=== PATIENT | female | born 1935 | race Caucasian/White ===

== ENCOUNTER → 2016-10-20 | Outpatient (CLI) | payer OTHER ==
[~2016-10-20] MED LIST: ALLEGRA 180MG180 MG PO; ANTACID200 MG PO; ASPIRIN 32325 MG/TAB PO; ASPIRIN 81M81 MG/TA2 PO; CALCIUM 500500 M2 PO; CARDIZEM 90MG T90 MG PO; CEPHALEXIN500 M1 PO; CLARITIN 1010 MG/TAB PO; CLEOCIN HC150 MG/CAP PO; CORDARONE200 MG/TAB PO; COZAAR100 MG PO; CRANBERRY1 CAP PO; CRANBERRY1 POW PO; CRANBERRY500 M3 PO; CRESTOR5 MG PO; DIOVAN HCT 25 M1 TAB PO; DOXYCYCLINE HY100 MG PO; ELIQUIS 5MG PO; IRON325 M2 PO; KLOR-CON M2020 MEQ PO; LASIX 20MG TABL20 MG PO; LASIX 40MG TABL40 MG PO; MAGNESIUM100 MG PO; MAGNESIUM250 M1 PO; MASON NATURAL2000 IU PO; MOBIC15 MG PO; MOTRIN 600600 MG/TAB PO; MULTIVITAMIN FO1 CAP PO; PACERONE400 MG PO; PREDNISONE20 MG PO; PROBIOTIC FORMU1 CAP PO; TAZTIA180 PO; TOPROL XL 25MG25 MG PO; TOPROL XL 50MG50 MG PO; TOPROL XL100 MG PO; TUMS DUAL ACTIO1 CTB PO; TUMS EXTRA STR750 MG PO; TYLENOL 500MG500 MG PO; ULTRAM 50MG TAB50 MG PO; VIT D; VITAMIN D32000 I1 PO; WOMEN'S DAILY F1 TAB PO; ZAROXOLYN 2.52.5 MG PO
== END ==
LOC: WCC 09:00
DX: I87.8 Other specified disorders of veins (principal); R20.0 Anesthesia of skin
CPT/HCPCS: G0463

== ENCOUNTER 2016-12-03 08:02 | Outpatient (CLI) | payer MEDICARE, OTHER ==
[2016-12-03] VITALS (8 sets, daily range): BP systolic 137–154; BP diastolic 45–73; PULSE 57–63; TEMP 97.6
[~2016-12-03] VITALS: Ht 155 cm; Wt 80.9 kg
[~2016-12-03 08:02] MED LIST changes: -ANTACID200 MG PO; -ASPIRIN 32325 MG/TAB PO; -ASPIRIN 81M81 MG/TA2 PO; -CARDIZEM 90MG T90 MG PO; -CEPHALEXIN500 M1 PO; -CLARITIN 1010 MG/TAB PO; -CORDARONE200 MG/TAB PO; -DOXYCYCLINE HY100 MG PO; -IRON325 M2 PO; -MASON NATURAL2000 IU PO; -PROBIOTIC FORMU1 CAP PO; -TOPROL XL 50MG50 MG PO; -TOPROL XL100 MG PO; -TUMS DUAL ACTIO1 CTB PO; -ULTRAM 50MG TAB50 MG PO; -ZAROXOLYN 2.52.5 MG PO
[2016-12-03 09:00] LABS: INR 1.1 (0.8-3.0); PROTHROMBIN TIME 12.3 SECONDS (9.7-12.8)
[2016-12-03] MEDS ORDERED: ANTACID200 MG PO (09:00)
[2016-12-03] MEDS ORDERED: ASPIRIN 81M81 MG/TA2 PO (09:02)
[2016-12-03] MEDS ORDERED: CLARITIN 1010 MG/TAB PO (09:04)
[2016-12-03] MEDS ORDERED: ULTRAM 50MG TAB50 MG PO (09:05)
[2016-12-03 09:08] LABS: MEAN CELL VOLUME 77 fl (80.0-100.0); MEAN CORPUSCULAR HGB CONC 30 g/dl (33.0-37.0); MEAN PLATELET VOLUME 8.7 fl (7.4-10.4); PLATELET COUNT 221 K/mm3 (130-400); RED BLOOD COUNT 4.54 M/mm3 (4.10-5.30); REDCELL DISTRIBUTION WIDTH-CV 16.4 % (11.5-14.5); WHITE BLOOD COUNT 6.2 K/mm3 (4.8-10.8)
[2016-12-03 09:18] LABS: HEMOGLOBIN 10.4 g/dl (12.5-16.0); MEAN CORPUSCULAR HEMOGLOBIN 23 pg (27.0-31.0)
== END 2016-12-03 15:33 | disposition home or self-care (01) ==
LOC: COL.VAS 08:02
PROVIDERS: Radiology Diagnostic Radiology
DX: I87.321 Chronic venous hypertension (idiopathic) with inflammation of right lower extremity (principal); M79.89 Other specified soft tissue disorders; M79.605 Pain in left leg
CPT/HCPCS: C1894; J2250; J3010; J3370; J7040; J7050; J7120

== ENCOUNTER → 2016-12-10 | Outpatient (CLI) | payer MEDICARE, OTHER ==
[~2016-12-10] MED LIST changes: +ANTACID200 MG PO; +ASPIRIN 32325 MG/TAB PO; +ASPIRIN 81M81 MG/TA2 PO; +CARDIZEM 90MG T90 MG PO; +CEPHALEXIN500 M1 PO; +CLARITIN 1010 MG/TAB PO; +CORDARONE200 MG/TAB PO; +DOXYCYCLINE HY100 MG PO; +IRON325 M2 PO; +MASON NATURAL2000 IU PO; +PROBIOTIC FORMU1 CAP PO; +TOPROL XL 50MG50 MG PO; +TOPROL XL100 MG PO; +TUMS DUAL ACTIO1 CTB PO; +ULTRAM 50MG TAB50 MG PO; +ZAROXOLYN 2.52.5 MG PO
== END ==
LOC: COL.VAS 10:56
DX: Z09 Encounter for follow-up examination after completed treatment for conditions other than malignant neoplasm (principal); I87.2 Venous insufficiency (chronic) (peripheral)

== ENCOUNTER 2017-01-07 08:00 | Outpatient (CLI) | payer MEDICARE, OTHER ==
[~2017-01-07] VITALS: Ht 154.9 cm; Wt 81.3 kg
[2017-01-07] VITALS (8 sets, daily range): BP systolic 111–150; BP diastolic 45–83; PULSE 61–66; TEMP 96.9
[~2017-01-07 08:00] MED LIST changes: -ASPIRIN 32325 MG/TAB PO; -CARDIZEM 90MG T90 MG PO; -CEPHALEXIN500 M1 PO; -CORDARONE200 MG/TAB PO; -DOXYCYCLINE HY100 MG PO; -IRON325 M2 PO; -MASON NATURAL2000 IU PO; -PROBIOTIC FORMU1 CAP PO; -TOPROL XL 50MG50 MG PO; -TOPROL XL100 MG PO; -TUMS DUAL ACTIO1 CTB PO; -ZAROXOLYN 2.52.5 MG PO
[2017-01-07] MEDS ORDERED: TOPROL XL 50MG50 MG PO (08:13)
[2017-01-07] MEDS ORDERED: CORDARONE200 MG/TAB PO (08:13)
[2017-01-07] MEDS ORDERED: TYLENOL 500MG500 MG PO (08:15)
== END 2017-01-07 14:47 | disposition home or self-care (01) ==
LOC: COL.VAS 08:00
DX: I87.2 Venous insufficiency (chronic) (peripheral) (principal); M79.89 Other specified soft tissue disorders
CPT/HCPCS: C1894; J2250; J3010; J3370; J7050; J7120

== ENCOUNTER → 2017-01-14 | Outpatient (CLI) | payer MEDICARE, OTHER ==
[~2017-01-14] MED LIST changes: +ASPIRIN 32325 MG/TAB PO; +CARDIZEM 90MG T90 MG PO; +CEPHALEXIN500 M1 PO; +CORDARONE200 MG/TAB PO; +DOXYCYCLINE HY100 MG PO; +IRON325 M2 PO; +MASON NATURAL2000 IU PO; +PROBIOTIC FORMU1 CAP PO; +TOPROL XL 50MG50 MG PO; +TOPROL XL100 MG PO; +TUMS DUAL ACTIO1 CTB PO; +ZAROXOLYN 2.52.5 MG PO
== END ==
LOC: COL.VAS 01-13 10:00
DX: Z09 Encounter for follow-up examination after completed treatment for conditions other than malignant neoplasm (principal); Z86.718 Personal history of other venous thrombosis and embolism

== ENCOUNTER 2017-04-18 19:52 | Observation (INO) | payer MEDICARE ==
[~2017-04-18] VITALS: Ht 154.9 cm; Wt 77.7 kg
[~2017-04-18 19:52] MED LIST changes: -ASPIRIN 32325 MG/TAB PO; -CARDIZEM 90MG T90 MG PO; -CEPHALEXIN500 M1 PO; -DOXYCYCLINE HY100 MG PO; -IRON325 M2 PO; -MASON NATURAL2000 IU PO; -PROBIOTIC FORMU1 CAP PO; -TOPROL XL100 MG PO; -TUMS DUAL ACTIO1 CTB PO; -ZAROXOLYN 2.52.5 MG PO
[2017-04-18 20:16] LABS: BASO % 0.3 % (0.0-2.0); EOS % 0.3 % (0-4.0); GRAN # 3.8 (1.4-6.5); GRAN % 62.5 % (42.2-75.2); LYMPH % 16.8 % (20.0-51.0); MEAN CELL VOLUME 77 fl (80.0-100.0); MEAN CORPUSCULAR HGB CONC 30 g/dl (33.0-37.0); MEAN PLATELET VOLUME 8.8 fl (7.4-10.4); MONO # 1.2 (0.1-0.6); MONO % 19.8 % (1.7-9.3); PLATELET COUNT 263 K/mm3 (130-400); RED BLOOD COUNT 4.42 M/mm3 (4.10-5.30); REDCELL DISTRIBUTION WIDTH-CV 21.2 % (11.5-14.5)
[2017-04-18 20:21] LABS: HEMOGLOBIN 10.1 g/dl (12.5-16.0); MEAN CORPUSCULAR HEMOGLOBIN 23 pg (27.0-31.0)
[2017-04-18] MEDS ORDERED: TOPROL XL100 MG PO (20:22)
[2017-04-18] MEDS ORDERED: LASIX 40MG TABL40 MG PO (20:23)
[2017-04-18] MEDS ORDERED: CARDIZEM 90MG T90 MG PO (20:23)
[2017-04-18] MEDS ORDERED: ASPIRIN 32325 MG/TAB PO (20:24)
[2017-04-18] MEDS ORDERED: CRANBERRY500 M3 PO (20:24)
[2017-04-18] MEDS ORDERED: MAGNESIUM250 M1 PO (20:24)
[2017-04-18] MEDS ORDERED: KLOR-CON M2020 MEQ PO (20:24)
[2017-04-18] MEDS ORDERED: TUMS DUAL ACTIO1 CTB PO (20:25)
[2017-04-18] MEDS ORDERED: MASON NATURAL2000 IU PO (20:25)
[2017-04-18] MEDS ORDERED: DOXYCYCLINE HY100 MG PO (20:26)
[2017-04-18] MEDS ORDERED: ULTRAM 50MG TAB50 MG PO ×2 (20:27→21:57)
[2017-04-18] MEDS ORDERED: ZAROXOLYN 2.52.5 MG PO (20:28)
[2017-04-18] MEDS ORDERED: PROBIOTIC FORMU1 CAP PO (20:28)
[2017-04-18 20:33] LABS: ADJUSTED CALCIUM 9.3 mg/dL (8.4-10.2); ALANINE AMINOTRANSFERASE 116 U/L (9-52); ALBUMIN 3.8 gm/dL (3.5-5.0); ALKALINE PHOSPHATASE 174 U/L (50-136); ANION GAP 12 mmol/L (7-16); BILIRUBIN,TOTAL 0.5 mg/dL (0.0-1.0); BLOOD UREA NITROGEN 84 mg/dL (7-17); CALCIUM 9.1 mg/dL (8.4-10.2); CARBON DIOXIDE 22 mmol/L (22-30); CHLORIDE 93 mmol/L (98-107); CREATININE, serum 1.94 mg/dL (0.52-1.25); GLUCOSE 106 mg/dL (74-106); POTASSIUM 3.6 mmol/L (3.4-5.0); SODIUM 127 mmol/L (137-145); TOTAL PROTEIN 7.2 gm/dL (6.4-8.2)
[2017-04-18 20:46] LABS: TROPONIN-I < 0.012 ng/mL (0.000-0.034)
[2017-04-18 20:53] LABS: PH 5 (5-8); SQUAMOUS EPITHELIAL None Seen /hpf; URINE APPEARANCE Clear; URINE BACTERIA None Seen /hpf; URINE BILIRUBIN Negative (NEGATIVE); URINE BLOOD Negative (NEGATIVE); URINE COLOR Yellow; URINE GLUCOSE Negative (NEGATIVE); URINE KETONE Negative (NEGATIVE); URINE UROBILINOGEN Negative (NEGATIVE)
[2017-04-18] MEDS ORDERED: ASPIRIN 81M81 MG/TA2 PO (21:54)
[2017-04-18] MEDS ORDERED: LASIX 20MG TABL20 MG PO (22:01)
[2017-04-18] MEDS ORDERED: PACERONE400 MG PO (22:03)
[2017-04-18 22:39] VITALS: BP 135/60; PULSE 61; TEMP 97.5
[2017-04-18 23:34] LABS: B-TYPE NATRIURETIC PEPTIDE 2580 pg/mL (0-450)
[2017-04-19 03:57] VITALS: BP 120/48; PULSE 56; TEMP 97.4
[2017-04-19 07:48] VITALS: BP 121/43; PULSE 59; TEMP 97.8
[2017-04-19 08:57] LABS: BASO % 0.4 % (0.0-2.0); EOS % 0.9 % (0-4.0); GRAN % 63.9 % (42.2-75.2); LYMPH # 0.8 (1.2-3.4); LYMPH % 17.1 % (20.0-51.0); MEAN CELL VOLUME 78 fl (80.0-100.0); MEAN CORPUSCULAR HGB CONC 30 g/dl (33.0-37.0); MEAN PLATELET VOLUME 9.3 fl (7.4-10.4); MONO # 0.8 (0.1-0.6); MONO % 17.5 % (1.7-9.3); PLATELET COUNT 199 K/mm3 (130-400); RED BLOOD COUNT 3.74 M/mm3 (4.10-5.30); REDCELL DISTRIBUTION WIDTH-CV 20.9 % (11.5-14.5); WHITE BLOOD COUNT 4.7 K/mm3 (4.8-10.8)
[2017-04-19 09:01] LABS: HEMATOCRIT 29.3 % (37.0-47.0); HEMOGLOBIN 8.7 g/dl (12.5-16.0); MEAN CORPUSCULAR HEMOGLOBIN 23 pg (27.0-31.0)
[2017-04-19 09:08] LABS: ADJUSTED CALCIUM 9.1 mg/dL (8.4-10.2); BILIRUBIN,TOTAL 0.3 mg/dL (0.0-1.0); CALCIUM 8.3 mg/dL (8.4-10.2); CREATININE, serum 1.41 mg/dL (0.52-1.25); TOTAL PROTEIN 5.9 gm/dL (6.4-8.2)
[2017-04-19 09:14] LABS: POTASSIUM 2.8 mmol/L (3.4-5.0)
[2017-04-19 09:34] LABS: TOTAL IRON BINDING CAPACITY 385 ug/dL (265-497)
[2017-04-19 10:01] LABS: FERRITIN 34 ng/mL (11-264)
[2017-04-19 12:16] VITALS: BP 113/61; PULSE 56; TEMP 98.5
[2017-04-19 15:49] VITALS: BP 121/37; PULSE 57
[2017-04-19 20:16] VITALS: BP 118/40; PULSE 57; TEMP 97.9
[2017-04-20 04:31] VITALS: BP 141/44; PULSE 58; TEMP 98.2
[2017-04-20 07:59] VITALS: BP 126/49; PULSE 56; TEMP 98
[2017-04-20 08:36] LABS: BASO % 0.7 % (0.0-2.0); EOS # 0.1 (0.0-0.7); EOS % 1.8 % (0-4.0); GRAN # 2.4 (1.4-6.5); GRAN % 53.7 % (42.2-75.2); LYMPH # 1.1 (1.2-3.4); LYMPH % 23.6 % (20.0-51.0); MEAN CELL VOLUME 79 fl (80.0-100.0); MEAN CORPUSCULAR HGB CONC 29 g/dl (33.0-37.0); MEAN PLATELET VOLUME 8.8 fl (7.4-10.4); MONO # 0.9 (0.1-0.6); PLATELET COUNT 192 K/mm3 (130-400); RED BLOOD COUNT 3.97 M/mm3 (4.10-5.30); REDCELL DISTRIBUTION WIDTH-CV 21.6 % (11.5-14.5); WHITE BLOOD COUNT 4.5 K/mm3 (4.8-10.8)
[2017-04-20 08:37] LABS: HEMATOCRIT 31.2 % (37.0-47.0); HEMOGLOBIN 9.1 g/dl (12.5-16.0); MEAN CORPUSCULAR HEMOGLOBIN 23 pg (27.0-31.0)
[2017-04-20 08:46] LABS: CALCIUM 8.7 mg/dL (8.4-10.2); CREATININE, serum 1.17 mg/dL (0.52-1.25); MAGNESIUM 2.2 mg/dL (1.6-2.3); POTASSIUM 4.2 mmol/L (3.4-5.0)
[2017-04-20 11:57] VITALS: BP 143/45; PULSE 57; TEMP 97.8
[2017-04-20] MEDS ORDERED: CEPHALEXIN500 M1 PO (13:27)
[2017-04-20 15:34] VITALS: BP 131/45; PULSE 57; TEMP 98
[2017-04-20] MEDS ORDERED: IRON325 M2 PO (16:21)
== END 2017-04-20 17:44 | disposition home health service (06) ==
LOC: COL.ER 19:52 → MEDICAL 21:26
PROVIDERS: Emergency Medicine; Nurse Practitioner Family; Physician Assistant
DX: N17.9 Acute kidney failure, unspecified (principal); N18.9 Chronic kidney disease, unspecified; N39.0 Urinary tract infection, site not specified; E87.1 Hypo-osmolality and hyponatremia; R53.83 Other fatigue; R60.9 Edema, unspecified; I87.8 Other specified disorders of veins; R11.0 Nausea; R19.7 Diarrhea, unspecified; D64.9 Anemia, unspecified; R74.8 Abnormal levels of other serum enzymes; R51 Headache; R53.1 Weakness; R53.81 Other malaise; I48.91 Unspecified atrial fibrillation; Z79.01 Long term (current) use of anticoagulants; I08.1 Rheumatic disorders of both mitral and tricuspid valves; M17.0 Bilateral primary osteoarthritis of knee
CPT/HCPCS: 99223-AI; 99239; G0378; G8978-GP; G8979-GP; G8987-GO; G8988-GO; J0696; J1644; J3480; J7030

== ENCOUNTER → 2017-05-03 | Outpatient (CLI) | payer MEDICARE, OTHER ==
[~2017-05-03] MED LIST changes: +ASPIRIN 32325 MG/TAB PO; +CARDIZEM 90MG T90 MG PO; +CEPHALEXIN500 M1 PO; +DOXYCYCLINE HY100 MG PO; +IRON325 M2 PO; +MASON NATURAL2000 IU PO; +PROBIOTIC FORMU1 CAP PO; +TOPROL XL100 MG PO; +TUMS DUAL ACTIO1 CTB PO; +ZAROXOLYN 2.52.5 MG PO
== END ==
LOC: WCC 11:21
DX: I89.0 Lymphedema, not elsewhere classified (principal)
CPT/HCPCS: 13919; G0463

== ENCOUNTER → 2017-05-10 | Outpatient (CLI) | payer MEDICARE, OTHER | LOC: WCC 09:27 | DX: I89.0 Lymphedema, not elsewhere classified (principal) | CPT/HCPCS: G0463 ==

== ENCOUNTER 2017-08-15 03:20 | Inpatient (IN) | payer MEDICARE, OTHER ==
[~2017-08-15] VITALS: Ht 154.9 cm; Wt 79.0 kg
[2017-08-15] MEDS ORDERED: LASIX 40MG TABL40 MG PO (03:41)
[2017-08-15] MEDS ORDERED: DOXYCYCLINE HY100 MG PO (03:41)
[2017-08-15 03:53] LABS: BASO % 0.5 % (0.0-2.0); EOS # 0.1 (0.0-0.7); EOS % 1.6 % (0-4.0); GRAN # 3.1 (1.4-6.5); GRAN % 70.6 % (42.2-75.2); LYMPH # 0.6 (1.2-3.4); LYMPH % 14.3 % (20.0-51.0); MEAN CELL VOLUME 96 fl (80.0-100.0); MEAN CORPUSCULAR HGB CONC 30 g/dl (33.0-37.0); MEAN PLATELET VOLUME 8.8 fl (7.4-10.4); MONO # 0.6 (0.1-0.6); MONO % 12.5 % (1.7-9.3); PLATELET COUNT 129 K/mm3 (130-400); RED BLOOD COUNT 3.52 M/mm3 (4.10-5.30); WHITE BLOOD COUNT 4.4 K/mm3 (4.8-10.8)
[2017-08-15 03:55] LABS: HEMATOCRIT 33.7 % (37.0-47.0); HEMOGLOBIN 10.2 g/dl (12.5-16.0); MEAN CORPUSCULAR HEMOGLOBIN 29 pg (27.0-31.0)
[2017-08-15 03:58] LABS: INR 1.2 (0.8-3.0); PROTHROMBIN TIME 12.9 SECONDS (9.7-12.8)
[2017-08-15] MEDS ORDERED: FERROUSAL325 MG PO (04:07)
[2017-08-15 04:11] LABS: ADJUSTED CALCIUM 9.7 mg/dL (8.4-10.2); ALANINE AMINOTRANSFERASE 22 U/L (9-52); ALBUMIN 3.5 gm/dL (3.5-5.0); ALKALINE PHOSPHATASE 115 U/L (50-136); ANION GAP 9 mmol/L (7-16); BLOOD UREA NITROGEN 19 mg/dL (7-17); CALCIUM 9.3 mg/dL (8.4-10.2); CARBON DIOXIDE 26 mmol/L (22-30); CHLORIDE 110 mmol/L (98-107); CREATININE, serum 1.01 mg/dL (0.52-1.25); GLUCOSE 150 mg/dL (74-106); POTASSIUM 3.8 mmol/L (3.4-5.0); SODIUM 145 mmol/L (137-145); TOTAL PROTEIN 6.5 gm/dL (6.4-8.2)
[2017-08-15 04:23] LABS: B-TYPE NATRIURETIC PEPTIDE 12500 pg/mL (0-450); TROPONIN-I < 0.012 ng/mL (0.000-0.034)
[2017-08-15 04:23] LABS: COLLECTION METHOD CLEAN CATCH
[2017-08-15 04:42] LABS: PH 6 (5-8); SQUAMOUS EPITHELIAL None Seen /hpf; URINE APPEARANCE Clear; URINE BACTERIA None Seen /hpf; URINE BILIRUBIN Negative (NEGATIVE); URINE BLOOD 2+ (NEGATIVE); URINE COLOR Yellow; URINE GLUCOSE Negative (NEGATIVE); URINE KETONE Negative (NEGATIVE); URINE LEUKOCYTE ESTERASE 1+ (NEGATIVE); URINE PROTEIN(semi-quant) 2+ (NEGATIVE); URINE RBC 20-50 /hpf; URINE UROBILINOGEN Negative (NEGATIVE)
[2017-08-15 04:45] LABS: URINE WBC >50 /hpf
[2017-08-15 05:29] LABS: ALLEN TEST YES; ALLENS TEST RESULT PASS; ARTERIAL BLD GAS O2 SATURATION 92.9 % (92-100); ARTERIAL BLD GAS TCO2 CT 21.7; ARTERIAL BLOOD GAS BASE EXCESS -4.2 (-2-2); ARTERIAL BLOOD GAS HCO3 20.5 meq/L (22-26); ARTERIAL BLOOD GAS PO2 74.3 mmHg (80-100); ARTERIAL BLOOD GAS pH 7.37 (7.35-7.45); ATS? YES; OXYHEMOGLOBIN 92.2 %
[2017-08-15 07:19] VITALS: BP 111/41; PULSE 81; TEMP 97.4
[2017-08-15 09:08] LABS: ARTERIAL BLD GAS O2 SATURATION 97.7 % (92-100); ARTERIAL BLD GAS TCO2 CT 28.2; ARTERIAL BLOOD GAS HCO3 26.7 meq/L (22-26); ARTERIAL BLOOD GAS PO2 116.5 mmHg (80-100); ARTERIAL BLOOD GAS pH 7.37 (7.35-7.45); OXYHEMOGLOBIN 96.5 %
[2017-08-15 09:09] LABS: ALLEN TEST YES; ALLENS TEST RESULT PASS; ATS? YES
[2017-08-15 10:15] LABS: POTASSIUM 3.4 mmol/L (3.4-5.0)
[2017-08-15 11:23] VITALS: BP 137/40; PULSE 65; TEMP 98.7
[2017-08-15 12:34] LABS: ARTERIAL BLD GAS O2 SATURATION 97.1 % (92-100); ARTERIAL BLOOD GAS BASE EXCESS 1.8 (-2-2); ARTERIAL BLOOD GAS HCO3 26.7 meq/L (22-26); ARTERIAL BLOOD GAS PO2 104.2 mmHg (80-100); ARTERIAL BLOOD GAS pH 7.41 (7.35-7.45); OXYHEMOGLOBIN 96.1 %
[2017-08-15 12:35] LABS: ALLEN TEST YES; ALLENS TEST RESULT PASS; ATS? YES
[2017-08-15 12:36] LABS: ABG VENTILATOR TIDAL VOLUME 438 mL
[2017-08-15 13:50] LABS: THYROID STIMULATING HORMONE 1.09 uIU/mL (0.465-4.680)
[2017-08-15 16:00] VITALS: BP 133/37; PULSE 58; TEMP 98.8
[2017-08-15 20:00] VITALS: BP 131/38; PULSE 56; TEMP 98.7
[2017-08-16 05:06] LABS: ARTERIAL BLD GAS O2 SATURATION 93.6 % (92-100); ARTERIAL BLD GAS TCO2 CT 29.5; ARTERIAL BLOOD GAS BASE EXCESS 3.6 (-2-2); ARTERIAL BLOOD GAS HCO3 28.2 meq/L (22-26); ARTERIAL BLOOD GAS PHT 7.44 C (7.35-7.45); ARTERIAL BLOOD GAS PO2 68.6 mmHg (80-100); ARTERIAL BLOOD GAS PO2T 68.6 (80-100); ARTERIAL BLOOD GAS pH 7.44 (7.35-7.45); OXYHEMOGLOBIN 92.8 %
[2017-08-16 05:09] LABS: ALLEN TEST YES; ALLENS TEST RESULT PASS; ATS? YES
[2017-08-16 06:52] LABS: BASO % 0.6 % (0.0-2.0); EOS # 0.1 (0.0-0.7); EOS % 1.7 % (0-4.0); GRAN # 2.4 (1.4-6.5); GRAN % 67.6 % (42.2-75.2); LYMPH # 0.6 (1.2-3.4); LYMPH % 16.7 % (20.0-51.0); MEAN CELL VOLUME 97 fl (80.0-100.0); MEAN CORPUSCULAR HGB CONC 30 g/dl (33.0-37.0); MEAN PLATELET VOLUME 9.7 fl (7.4-10.4); MONO # 0.5 (0.1-0.6); MONO % 13.1 % (1.7-9.3); PLATELET COUNT 119 K/mm3 (130-400); RED BLOOD COUNT 3.19 M/mm3 (4.10-5.30); WHITE BLOOD COUNT 3.6 K/mm3 (4.8-10.8)
[2017-08-16 06:58] LABS: HEMATOCRIT 30.8 % (37.0-47.0); HEMOGLOBIN 9.3 g/dl (12.5-16.0); MEAN CORPUSCULAR HEMOGLOBIN 29 pg (27.0-31.0)
[2017-08-16 07:07] LABS: CALCIUM 9.1 mg/dL (8.4-10.2); CREATININE, serum 1.16 mg/dL (0.52-1.25); MAGNESIUM 1.9 mg/dL (1.6-2.3); POTASSIUM 3.6 mmol/L (3.4-5.0)
[2017-08-16 09:05] VITALS: BP 148/47; PULSE 70; TEMP 98.4
[2017-08-16 12:30] VITALS: BP 146/71; PULSE 66; TEMP 98.1
[2017-08-16 15:47] VITALS: BP 141/44; PULSE 62; TEMP 97.5
[2017-08-16 20:00] VITALS: BP 167/60; PULSE 56; TEMP 97.6
[2017-08-17] VITALS (7 sets, daily range): BP systolic 132–173; BP diastolic 43–66; PULSE 54–59; TEMP 96.7–97.9
[2017-08-17 07:15] LABS: BASO % 0.6 % (0.0-2.0); EOS # 0.2 (0.0-0.7); EOS % 4.4 % (0-4.0); GRAN # 2.1 (1.4-6.5); GRAN % 61.3 % (42.2-75.2); LYMPH # 0.7 (1.2-3.4); LYMPH % 19.2 % (20.0-51.0); MEAN CELL VOLUME 97 fl (80.0-100.0); MEAN CORPUSCULAR HGB CONC 30 g/dl (33.0-37.0); MEAN PLATELET VOLUME 9.6 fl (7.4-10.4); MONO # 0.5 (0.1-0.6); MONO % 14.2 % (1.7-9.3); PLATELET COUNT 122 K/mm3 (130-400); WHITE BLOOD COUNT 3.4 K/mm3 (4.8-10.8)
[2017-08-17 07:16] LABS: HEMOGLOBIN 10.2 g/dl (12.5-16.0); MEAN CORPUSCULAR HEMOGLOBIN 29 pg (27.0-31.0)
[2017-08-17 07:26] LABS: CALCIUM 9.1 mg/dL (8.4-10.2); CREATININE, serum 1.17 mg/dL (0.52-1.25); MAGNESIUM 2.1 mg/dL (1.6-2.3); POTASSIUM 3.6 mmol/L (3.4-5.0)
[2017-08-18] VITALS (16 sets, daily range): BP systolic 121–163; BP diastolic 39–97; PULSE 55–60; TEMP 97.4–98.7
[2017-08-18 07:07] LABS: BASO % 0.6 % (0.0-2.0); EOS # 0.1 (0.0-0.7); EOS % 3.7 % (0-4.0); GRAN % 60.2 % (42.2-75.2); LYMPH # 0.7 (1.2-3.4); LYMPH % 19.9 % (20.0-51.0); MEAN CELL VOLUME 96 fl (80.0-100.0); MEAN CORPUSCULAR HGB CONC 30 g/dl (33.0-37.0); MEAN PLATELET VOLUME 9.5 fl (7.4-10.4); MONO # 0.5 (0.1-0.6); MONO % 15.3 % (1.7-9.3); PLATELET COUNT 127 K/mm3 (130-400); WHITE BLOOD COUNT 3.3 K/mm3 (4.8-10.8)
[2017-08-18 07:12] LABS: HEMATOCRIT 30.8 % (37.0-47.0); HEMOGLOBIN 9.2 g/dl (12.5-16.0); MEAN CORPUSCULAR HEMOGLOBIN 29 pg (27.0-31.0)
[2017-08-18 07:15] LABS: INR 1.2 (0.8-3.0); PROTHROMBIN TIME 12.9 SECONDS (9.7-12.8)
[2017-08-18 07:16] LABS: PARTIAL THROMBOPLASTIN TIME 33.2 SECONDS (26.0-37.0)
[2017-08-18 07:17] LABS: CALCIUM 8.5 mg/dL (8.4-10.2); CREATININE, serum 1.11 mg/dL (0.52-1.25); MAGNESIUM 1.8 mg/dL (1.6-2.3)
[2017-08-18 07:56] LABS: POTASSIUM 2.9 mmol/L (3.4-5.0)
[2017-08-19 00:33] VITALS: BP 155/49; PULSE 58; TEMP 97.7
[2017-08-19 03:35] VITALS: BP 181/69; PULSE 57; TEMP 97.8
[2017-08-19 04:49] VITALS: BP 181/69; PULSE 57; TEMP 97.8
[2017-08-19 07:31] VITALS: BP 154/51; PULSE 58; TEMP 98.2
[2017-08-19 07:33] LABS: BASO % 0.6 % (0.0-2.0); EOS # 0.1 (0.0-0.7); EOS % 3.7 % (0-4.0); GRAN # 2.3 (1.4-6.5); GRAN % 64.8 % (42.2-75.2); LYMPH # 0.6 (1.2-3.4); LYMPH % 15.6 % (20.0-51.0); MEAN CELL VOLUME 96 fl (80.0-100.0); MEAN CORPUSCULAR HGB CONC 30 g/dl (33.0-37.0); MEAN PLATELET VOLUME 9.7 fl (7.4-10.4); MONO # 0.5 (0.1-0.6); PLATELET COUNT 127 K/mm3 (130-400); RED BLOOD COUNT 3.42 M/mm3 (4.10-5.30); WHITE BLOOD COUNT 3.5 K/mm3 (4.8-10.8)
[2017-08-19 07:38] LABS: HEMATOCRIT 32.7 % (37.0-47.0); HEMOGLOBIN 9.9 g/dl (12.5-16.0); MEAN CORPUSCULAR HEMOGLOBIN 29 pg (27.0-31.0)
[2017-08-19 07:53] LABS: CALCIUM 8.9 mg/dL (8.4-10.2); CREATININE, serum 1.11 mg/dL (0.52-1.25); MAGNESIUM 2.3 mg/dL (1.6-2.3)
[2017-08-19] MEDS ORDERED: DESENEX TP (09:18)
[2017-08-19] MEDS ORDERED: DEMADEX 20MG20 M1 PO ×2 (09:18→10:56)
[2017-08-19] MEDS ORDERED: NS INT FLUSH 1010 ML IV ×2 (09:23→09:24)
[2017-08-19] MEDS ORDERED: HEPARIN LOCK FLU5 M1 IV ×2 (09:24→09:25)
[2017-08-19] MEDS ORDERED: MAXIPIMEIVSOL IV (09:27)
[2017-08-19] MEDS ORDERED: VOLTAREN GEL 1%1 TU TP (09:27)
[2017-08-19 11:55] VITALS: BP 142/52; PULSE 58; TEMP 97.9
[2017-08-19 12:39] VITALS: BP 142/52; PULSE 58; TEMP 97.9
== END 2017-08-19 12:48 | DRG 286 ==
LOC: COL.ER 03:20 → MEDICAL 04:50
PROVIDERS: Family Medicine; Internal Medicine Cardiovascular Disease; Nurse Practitioner; Nurse Practitioner Family; Physician Assistant
PROC: B2111ZZ Fluoroscopy of Multiple Coronary Arteries using Low Osmolar Contrast (ICD-10-PCS; principal; 2017-08-18)
DX: I50.33 Acute on chronic diastolic (congestive) heart failure (principal); J96.01 Acute respiratory failure with hypoxia; J96.02 Acute respiratory failure with hypercapnia; B37.49 Other urogenital candidiasis; N39.0 Urinary tract infection, site not specified; I42.9 Cardiomyopathy, unspecified; N18.3 Chronic kidney disease, stage 3 (moderate); I48.91 Unspecified atrial fibrillation; I08.3 Combined rheumatic disorders of mitral, aortic and tricuspid valves; E87.6 Hypokalemia; I25.82 Chronic total occlusion of coronary artery; B96.5 Pseudomonas (aeruginosa) (mallei) (pseudomallei) as the cause of diseases classified elsewhere; I87.8 Other specified disorders of veins
CPT/HCPCS: 99223-AI; 99232-AI; 99233-AI; 99238; 99239; A4315; A9284; C1751; C1769; J0692; J0696; J1644; J1940; J2250; J3010; J3475; J3480; Q9967

== ENCOUNTER → 2017-08-27 | Outpatient (REF) ==
[~2017-08-27] MED LIST changes: +DEMADEX 20MG20 M1 PO; +DESENEX TP; +FERROUSAL325 MG PO; +HEPARIN LOCK FLU5 M1 IV; +MAXIPIMEIVSOL IV; +NS INT FLUSH 1010 ML IV; +VOLTAREN GEL 1%1 TU TP
[2017-08-27 23:57] LABS: BASO % 0.5 % (0.0-2.0); EOS # 0.1 (0.0-0.7); EOS % 1.3 % (0-4.0); GRAN # 4.5 (1.4-6.5); GRAN % 74.7 % (42.2-75.2); HEMATOCRIT 38.5 % (37.0-47.0); HEMOGLOBIN 12.1 g/dl (12.5-16.0); LYMPH # 0.6 (1.2-3.4); LYMPH % 10.5 % (20.0-51.0); MEAN CELL VOLUME 93 fl (80.0-100.0); MEAN CORPUSCULAR HEMOGLOBIN 29 pg (27.0-31.0); MEAN CORPUSCULAR HGB CONC 31 g/dl (33.0-37.0); MEAN PLATELET VOLUME 9.4 fl (7.4-10.4); MONO # 0.8 (0.1-0.6); MONO % 12.5 % (1.7-9.3); PLATELET COUNT 184 K/mm3 (130-400); RED BLOOD COUNT 4.12 M/mm3 (4.10-5.30)
[2017-08-28 00:07] LABS: ADJUSTED CALCIUM 9.6 mg/dL (8.4-10.2); ALBUMIN 4.2 gm/dL (3.5-5.0); BILIRUBIN,TOTAL 0.6 mg/dL (0.0-1.0); CALCIUM 9.8 mg/dL (8.4-10.2); CREATININE, serum 1.84 mg/dL (0.52-1.25); POTASSIUM 3.9 mmol/L (3.4-5.0)
== END ==
LOC: ZCOL.LAB 23:53
PROVIDERS: Internal Medicine
DX: Z01.89 Encounter for other specified special examinations (principal)

== ENCOUNTER → 2017-09-02 | Outpatient (REF) ==
[2017-09-02 17:38] LABS: CALCIUM 9.4 mg/dL (8.4-10.2); CHOLESTEROL RISK RATIO 3.7; CREATININE, serum 1.58 mg/dL (0.52-1.25); POTASSIUM 3.9 mmol/L (3.4-5.0)
== END ==
LOC: ZCOL.LAB 17:10
PROVIDERS: Internal Medicine
DX: N18.9 Chronic kidney disease, unspecified (principal); E78.5 Hyperlipidemia, unspecified

== ENCOUNTER 2017-10-04 14:00 | Outpatient (RCR) | payer MEDICARE, OTHER ==
[2017-10-12] MEDS ORDERED: MAGNESIUM250 M1 PO (17:00)
[2017-10-12] MEDS ORDERED: PACERONE400 MG PO (17:01)
[2017-10-12] MEDS ORDERED: CALCIUM CARBON650 M2 PO (17:02)
[2017-10-12] MEDS ORDERED: LASIX 40MG TABL40 MG PO (17:06)
[2017-10-12] MEDS ORDERED: K-TAB20 PO (17:07)
[2017-10-12] MEDS ORDERED: MULTI VITAMINS1 TAB PO (17:08)
[2017-10-12] MEDS ORDERED: ALLEGRA 180MG180 MG PO (17:10)
[2017-10-12] MEDS ORDERED: IBU600 MG PO (17:12)
[2017-10-12] MEDS ORDERED: ATIVAN 0.50.5 MG/TAB PO (17:15)
[2017-10-12] MEDS ORDERED: LOTRISONE CREAM15 GM TP (17:19)
[2017-10-12] MEDS ORDERED: DOXYCYCLINE 10100 MG PO (17:20)
[2017-10-12] MEDS ORDERED: DEMADEX 20MG20 M1 PO (17:36)
== END 2017-11-07 08:43 | disposition home or self-care (01) ==
LOC: WSPT 14:00
DX: I89.0 Lymphedema, not elsewhere classified (principal); M62.81 Muscle weakness (generalized)
CPT/HCPCS: G8979-GP; G8980-GP

== ENCOUNTER 2017-10-12 16:21 | Inpatient (IN) | payer MEDICARE ==
[~2017-10-12] VITALS: Ht 154.9 cm; Wt 79.6 kg
[2017-10-12 16:59] VITALS: BP 152/49; PULSE 54; TEMP 97.5
[2017-10-12] MEDS ORDERED: MAGNESIUM250 M1 PO (17:00)
[2017-10-12] MEDS ORDERED: PACERONE400 MG PO (17:01)
[2017-10-12] MEDS ORDERED: CALCIUM CARBON650 M2 PO (17:02)
[2017-10-12] MEDS ORDERED: LASIX 40MG TABL40 MG PO (17:06)
[2017-10-12] MEDS ORDERED: K-TAB20 PO (17:07)
[2017-10-12] MEDS ORDERED: MULTI VITAMINS1 TAB PO (17:08)
[2017-10-12] MEDS ORDERED: ALLEGRA 180MG180 MG PO (17:10)
[2017-10-12] MEDS ORDERED: IBU600 MG PO (17:12)
[2017-10-12] MEDS ORDERED: ATIVAN 0.50.5 MG/TAB PO (17:15)
[2017-10-12] MEDS ORDERED: LOTRISONE CREAM15 GM TP (17:19)
[2017-10-12] MEDS ORDERED: DOXYCYCLINE 10100 MG PO (17:20)
[2017-10-12] MEDS ORDERED: DEMADEX 20MG20 M1 PO (17:36)
[2017-10-12 18:19] LABS: CALCIUM 8.6 mg/dL (8.4-10.2); CREATININE, serum 2.51 mg/dL (0.52-1.25); MAGNESIUM 2.1 mg/dL (1.6-2.3)
[2017-10-12 18:39] LABS: POTASSIUM 2.6 mmol/L (3.4-5.0)
[2017-10-12 19:22] LABS: BASO % 0.2 % (0.0-2.0); EOS # 0.2 (0.0-0.7); EOS % 1.8 % (0-4.0); GRAN # 6.7 (1.4-6.5); GRAN % 76.3 % (42.2-75.2); LYMPH # 0.9 (1.2-3.4); LYMPH % 9.8 % (20.0-51.0); MEAN CELL VOLUME 87 fl (80.0-100.0); MEAN CORPUSCULAR HGB CONC 32 g/dl (33.0-37.0); MEAN PLATELET VOLUME 9.6 fl (7.4-10.4); MONO # 0.8 (0.1-0.6); MONO % 9.5 % (1.7-9.3); PLATELET COUNT 106 K/mm3 (130-400); RED BLOOD COUNT 3.86 M/mm3 (4.10-5.30); REDCELL DISTRIBUTION WIDTH-CV 14.7 % (11.5-14.5)
[2017-10-12 19:38] LABS: HEMATOCRIT 33.6 % (37.0-47.0); HEMOGLOBIN 10.8 g/dl (12.5-16.0); MEAN CORPUSCULAR HEMOGLOBIN 28 pg (27.0-31.0)
[2017-10-12 19:42] LABS: COLLECTION METHOD CATHETER
[2017-10-12 19:43] VITALS: BP 141/48; PULSE 52; TEMP 98.7
[2017-10-12 20:05] LABS: PH 6 (5-8); SQUAMOUS EPITHELIAL None Seen /hpf; URINE APPEARANCE Cloudy; URINE BACTERIA None Seen /hpf; URINE BILIRUBIN Negative (NEGATIVE); URINE BLOOD 2+ (NEGATIVE); URINE COLOR Yellow; URINE GLUCOSE Negative (NEGATIVE); URINE KETONE Negative (NEGATIVE); URINE LEUKOCYTE ESTERASE 3+ (NEGATIVE); URINE NITRATE Negative (NEGATIVE); URINE PROTEIN(semi-quant) 1+ (NEGATIVE); URINE RBC >50 /hpf; URINE UROBILINOGEN >=4.0 mg/dL (NEGATIVE)
[2017-10-12 23:28] VITALS: BP 148/54; PULSE 57; TEMP 97.6
[2017-10-13 04:50] VITALS: BP 157/45; PULSE 61; TEMP 97.4
[2017-10-13 07:28] LABS: BASO % 0.2 % (0.0-2.0); EOS # 0.2 (0.0-0.7); GRAN % 73.5 % (42.2-75.2); LYMPH # 0.9 (1.2-3.4); LYMPH % 11.5 % (20.0-51.0); MEAN CELL VOLUME 87 fl (80.0-100.0); MEAN CORPUSCULAR HGB CONC 32 g/dl (33.0-37.0); MONO # 0.9 (0.1-0.6); PLATELET COUNT 109 K/mm3 (130-400); RED BLOOD COUNT 3.44 M/mm3 (4.10-5.30); REDCELL DISTRIBUTION WIDTH-CV 14.8 % (11.5-14.5)
[2017-10-13 07:49] LABS: HEMATOCRIT 29.9 % (37.0-47.0); HEMOGLOBIN 9.7 g/dl (12.5-16.0); MEAN CORPUSCULAR HEMOGLOBIN 28 pg (27.0-31.0)
[2017-10-13 07:53] LABS: CALCIUM 8.2 mg/dL (8.4-10.2); CREATININE, serum 2.02 mg/dL (0.52-1.25); POTASSIUM 3.4 mmol/L (3.4-5.0)
[2017-10-13 08:03] VITALS: BP 152/52; PULSE 64; TEMP 98.9
[2017-10-13 11:41] VITALS: BP 137/43; PULSE 63; TEMP 98.8
[2017-10-13 16:01] VITALS: BP 150/50; PULSE 63; TEMP 99.2
[2017-10-13 20:44] VITALS: BP 129/53; PULSE 67; TEMP 97.8
[2017-10-13 23:46] VITALS: BP 151/59; PULSE 63; TEMP 98.8
[2017-10-14 04:16] VITALS: BP 159/58; PULSE 58; TEMP 99.1
[2017-10-14 06:40] LABS: MEAN CELL VOLUME 89 fl (80.0-100.0); MEAN CORPUSCULAR HGB CONC 32 g/dl (33.0-37.0); MEAN PLATELET VOLUME 9.5 fl (7.4-10.4); PLATELET COUNT 114 K/mm3 (130-400); RED BLOOD COUNT 3.42 M/mm3 (4.10-5.30); REDCELL DISTRIBUTION WIDTH-CV 15.1 % (11.5-14.5)
[2017-10-14 06:52] LABS: HEMATOCRIT 30.4 % (37.0-47.0); HEMOGLOBIN 9.6 g/dl (12.5-16.0); MEAN CORPUSCULAR HEMOGLOBIN 28 pg (27.0-31.0)
[2017-10-14 06:57] LABS: CALCIUM 8.7 mg/dL (8.4-10.2); CREATININE, serum 1.84 mg/dL (0.52-1.25); MAGNESIUM 2.1 mg/dL (1.6-2.3); POTASSIUM 3.8 mmol/L (3.4-5.0)
[2017-10-14 07:55] VITALS: BP 152/53; PULSE 56; TEMP 97.8
[2017-10-14 09:15] LABS: BAND 33 % (0-10); EOSINOPHIL 1 % (0-4); HYPOCHROMIA 1+; LYMPHOCYTE 16 % (20.0-51.0); METAMYELOCYTE 1 % (0-0); NEUTROPHILS 47 % (42.0-75.2); PLATELET ESTIMATE NORMAL (NORMAL)
[2017-10-14 09:16] LABS: OVALOCYTES 1+
[2017-10-14 11:32] VITALS: BP 169/58; PULSE 56; TEMP 97.9
[2017-10-14 15:16] VITALS: BP 140/48; PULSE 61; TEMP 98.5
[2017-10-14 19:27] VITALS: BP 114/53; PULSE 93; TEMP 98.4
[2017-10-15] VITALS (7 sets, daily range): BP systolic 136–164; BP diastolic 46–59; PULSE 58–65; TEMP 97.8–98.7
[2017-10-15 07:08] LABS: MEAN CELL VOLUME 89 fl (80.0-100.0); MEAN CORPUSCULAR HGB CONC 32 g/dl (33.0-37.0); MEAN PLATELET VOLUME 10.1 fl (7.4-10.4); PLATELET COUNT 125 K/mm3 (130-400); RED BLOOD COUNT 3.29 M/mm3 (4.10-5.30)
[2017-10-15 07:11] LABS: HEMATOCRIT 29.3 % (37.0-47.0); HEMOGLOBIN 9.4 g/dl (12.5-16.0); MEAN CORPUSCULAR HEMOGLOBIN 29 pg (27.0-31.0)
[2017-10-15 07:19] LABS: CALCIUM 8.6 mg/dL (8.4-10.2); CREATININE, serum 1.56 mg/dL (0.52-1.25); MAGNESIUM 2.1 mg/dL (1.6-2.3); POTASSIUM 3.8 mmol/L (3.4-5.0)
[2017-10-15 08:06] LABS: BAND 2 % (0-10); EOSINOPHIL 2 % (0-4); LYMPHOCYTE 11 % (20.0-51.0); METAMYELOCYTE 1 % (0-0); NEUTROPHILS 76 % (42.0-75.2); PLATELET ESTIMATE NORMAL (NORMAL)
[2017-10-15 08:07] LABS: HYPOCHROMIA 1+
[2017-10-16] VITALS (7 sets, daily range): BP systolic 122–173; BP diastolic 44–82; PULSE 58–75; TEMP 97.8–98.5
[2017-10-16 06:40] LABS: MEAN CELL VOLUME 89 fl (80.0-100.0); MEAN CORPUSCULAR HGB CONC 32 g/dl (33.0-37.0); PLATELET COUNT 137 K/mm3 (130-400); RED BLOOD COUNT 3.29 M/mm3 (4.10-5.30)
[2017-10-16 06:41] LABS: HEMATOCRIT 29.4 % (37.0-47.0); HEMOGLOBIN 9.3 g/dl (12.5-16.0); MEAN CORPUSCULAR HEMOGLOBIN 28 pg (27.0-31.0)
[2017-10-16 06:58] LABS: CALCIUM 8.6 mg/dL (8.4-10.2); CREATININE, serum 1.34 mg/dL (0.52-1.25); POTASSIUM 3.5 mmol/L (3.4-5.0)
[2017-10-16 07:29] LABS: BAND 6 % (0-10); EOSINOPHIL 3 % (0-4); HYPOCHROMIA 1+; LYMPHOCYTE 15 % (20.0-51.0); NEUTROPHILS 74 % (42.0-75.2); PLATELET ESTIMATE NORMAL (NORMAL)
[2017-10-17 03:54] VITALS: BP 157/48; PULSE 66; PULSE 669; TEMP 98.5
[2017-10-17 08:09] LABS: CALCIUM 8.8 mg/dL (8.4-10.2); CREATININE, serum 1.34 mg/dL (0.52-1.25); POTASSIUM 4.1 mmol/L (3.4-5.0)
[2017-10-17 08:51] VITALS: BP 142/48; PULSE 66; TEMP 98
[2017-10-17 12:04] VITALS: BP 160/55; PULSE 63; TEMP 97.9
== END 2017-10-17 15:50 | disposition home or self-care (01) | DRG 683 ==
LOC: MEDICAL 16:21
PROVIDERS: Internal Medicine; Physician Assistant
DX: N17.9 Acute kidney failure, unspecified (principal); N39.0 Urinary tract infection, site not specified; I13.0 Hypertensive heart and chronic kidney disease with heart failure and stage 1 through stage 4 chronic kidney disease, or unspecified chronic kidney disease; I50.32 Chronic diastolic (congestive) heart failure; E87.1 Hypo-osmolality and hyponatremia; N18.3 Chronic kidney disease, stage 3 (moderate); I34.0 Nonrheumatic mitral (valve) insufficiency; E87.6 Hypokalemia; D64.9 Anemia, unspecified; B96.5 Pseudomonas (aeruginosa) (mallei) (pseudomallei) as the cause of diseases classified elsewhere; B95.2 Enterococcus as the cause of diseases classified elsewhere; I87.8 Other specified disorders of veins; I48.91 Unspecified atrial fibrillation
CPT/HCPCS: 99222-AI; 99232-AI; 99233-AI; 99239; J0692; J1644; J7030

== ENCOUNTER 2017-11-28 16:08 | Inpatient (IN) | payer MEDICARE ==
[~2017-11-28] VITALS: Ht 154.9 cm; Wt 84.4 kg
[~2017-11-28 16:08] MED LIST changes: +ATIVAN 0.50.5 MG/TAB PO; +CALCIUM CARBON650 M2 PO; +DOXYCYCLINE 10100 MG PO; +IBU600 MG PO; +K-TAB20 PO; +LOTRISONE CREAM15 GM TP; +MULTI VITAMINS1 TAB PO
[2017-11-28 16:31] VITALS: BP 152/71; PULSE 59; TEMP 97.9
[2017-11-28] MEDS ORDERED: FERROUS SU325 MG/TAB PO (16:47)
[2017-11-28] MEDS ORDERED: LIPITOR 40MG TA40 MG PO (16:47)
[2017-11-28] MEDS ORDERED: PROBIOTIC FORMU1 CAP PO (16:47)
[2017-11-28] MEDS ORDERED: PACERONE400 MG PO (16:48)
[2017-11-28] MEDS ORDERED: TUMS500 MG PO (16:48)
[2017-11-28] MEDS ORDERED: VOLTAREN GEL 1%1 TU TP (16:48)
[2017-11-28] MEDS ORDERED: LOTRISONE CREAM15 GM TP (16:49)
[2017-11-28] MEDS ORDERED: ASPIRIN 81M81 MG/TA2 PO (16:49)
[2017-11-28] MEDS ORDERED: MASON NATURAL2000 IU PO (16:50)
[2017-11-28] MEDS ORDERED: TOPROL XL 50MG50 MG PO (16:50)
[2017-11-28] MEDS ORDERED: CRANBERRY500 M3 PO (16:50)
[2017-11-28] MEDS ORDERED: ADVIL200 MG PO (16:51)
[2017-11-28] MEDS ORDERED: LASIX 40MG TABL40 MG PO (16:52)
[2017-11-28] MEDS ORDERED: DOXYCYCLINE 10100 MG PO (16:52)
[2017-11-28 16:53] LABS: BASO % 0.2 % (0.0-2.0); EOS # 0.2 (0.0-0.7); EOS % 5.1 % (0-4.0); GRAN # 2.9 (1.4-6.5); GRAN % 64.2 % (42.2-75.2); LYMPH # 0.8 (1.2-3.4); LYMPH % 16.6 % (20.0-51.0); MEAN CELL VOLUME 96 fl (80.0-100.0); MEAN CORPUSCULAR HGB CONC 30 g/dl (33.0-37.0); MEAN PLATELET VOLUME 9.6 fl (7.4-10.4); MONO # 0.6 (0.1-0.6); MONO % 13.2 % (1.7-9.3); PLATELET COUNT 97 K/mm3 (130-400); RED BLOOD COUNT 2.47 M/mm3 (4.10-5.30)
[2017-11-28] MEDS ORDERED: K-DUR20 MEQ PO (16:53)
[2017-11-28 16:57] LABS: HEMATOCRIT 23.8 % (37.0-47.0); HEMOGLOBIN 7.2 g/dl (12.5-16.0); MEAN CORPUSCULAR HEMOGLOBIN 29 pg (27.0-31.0)
[2017-11-28 17:05] LABS: ALBUMIN 3.6 gm/dL (3.5-5.0); BILIRUBIN,TOTAL 0.6 mg/dL (0.0-1.0); CALCIUM 9.5 mg/dL (8.4-10.2); CREATININE, serum 2.12 mg/dL (0.52-1.25); MAGNESIUM 2.3 mg/dL (1.6-2.3); POTASSIUM 3.5 mmol/L (3.4-5.0); TOTAL PROTEIN 6.8 gm/dL (6.4-8.2)
[2017-11-28] MEDS ORDERED: BENADRYL25 M2 PO (17:05)
[2017-11-28] MEDS ORDERED: ALLEGRA 180MG180 MG PO (17:06)
[2017-11-28 22:00] VITALS: BP 149/60; PULSE 60; TEMP 98.6
[2017-11-29] VITALS (11 sets, daily range): BP systolic 124–151; BP diastolic 41–69; PULSE 53–70; TEMP 96.4–97.8
[2017-11-29 01:12] LABS: HEMATOCRIT 23.9 % (37.0-47.0); HEMOGLOBIN 7.3 g/dl (12.5-16.0)
[2017-11-29 06:49] LABS: BASO % 0.4 % (0.0-2.0); EOS # 0.2 (0.0-0.7); EOS % 4.1 % (0-4.0); GRAN # 3.3 (1.4-6.5); LYMPH # 0.7 (1.2-3.4); LYMPH % 14.5 % (20.0-51.0); MEAN CELL VOLUME 97 fl (80.0-100.0); MEAN CORPUSCULAR HGB CONC 30 g/dl (33.0-37.0); MEAN PLATELET VOLUME 9.9 fl (7.4-10.4); MONO # 0.6 (0.1-0.6); MONO % 12.6 % (1.7-9.3); PLATELET COUNT 105 K/mm3 (130-400); RED BLOOD COUNT 2.52 M/mm3 (4.10-5.30); REDCELL DISTRIBUTION WIDTH-CV 21.1 % (11.5-14.5)
[2017-11-29 07:00] LABS: HEMATOCRIT 24.4 % (37.0-47.0); HEMOGLOBIN 7.2 g/dl (12.5-16.0); MEAN CORPUSCULAR HEMOGLOBIN 29 pg (27.0-31.0)
[2017-11-29 07:03] LABS: CALCIUM 9.3 mg/dL (8.4-10.2); CREATININE, serum 1.78 mg/dL (0.52-1.25); POTASSIUM 3.5 mmol/L (3.4-5.0)
[2017-11-29 09:21] LABS: HEMATOCRIT 21.4 % (37.0-47.0); HEMOGLOBIN 6.4 g/dl (12.5-16.0)
[2017-11-29 14:38] LABS: COLLECTION METHOD CLEAN CATCH
[2017-11-29 14:50] LABS: MUCOUS Present /lpf; PH 5 (5-8); SQUAMOUS EPITHELIAL 0-2 /hpf; URINE APPEARANCE Hazy; URINE BACTERIA None Seen /hpf; URINE BILIRUBIN Negative (NEGATIVE); URINE BLOOD 2+ (NEGATIVE); URINE COLOR Yellow; URINE GLUCOSE Negative (NEGATIVE); URINE KETONE Negative (NEGATIVE); URINE LEUKOCYTE ESTERASE 3+ (NEGATIVE); URINE NITRATE Negative (NEGATIVE); URINE PROTEIN(semi-quant) Negative (NEGATIVE); URINE RBC >50 /hpf; URINE UROBILINOGEN Negative (NEGATIVE)
[2017-11-29 18:07] LABS: HEMATOCRIT 26.4 % (37.0-47.0); HEMOGLOBIN 7.9 g/dl (12.5-16.0)
[2017-11-30 01:08] LABS: HEMATOCRIT 24.7 % (37.0-47.0); HEMOGLOBIN 7.5 g/dl (12.5-16.0)
[2017-11-30 01:38] VITALS: BP 140/49; PULSE 56; TEMP 97.4
[2017-11-30 05:13] VITALS: BP 125/47; PULSE 55; TEMP 98
[2017-11-30 06:45] LABS: BASO % 0.2 % (0.0-2.0); EOS # 0.2 (0.0-0.7); EOS % 3.5 % (0-4.0); GRAN # 4.1 (1.4-6.5); GRAN % 71.6 % (42.2-75.2); LYMPH # 0.6 (1.2-3.4); LYMPH % 11.2 % (20.0-51.0); MEAN CELL VOLUME 96 fl (80.0-100.0); MEAN CORPUSCULAR HGB CONC 30 g/dl (33.0-37.0); MEAN PLATELET VOLUME 9.5 fl (7.4-10.4); MONO # 0.8 (0.1-0.6); MONO % 13.3 % (1.7-9.3); PLATELET COUNT 89 K/mm3 (130-400); RED BLOOD COUNT 2.65 M/mm3 (4.10-5.30)
[2017-11-30 06:50] LABS: HEMATOCRIT 25.4 % (37.0-47.0); HEMOGLOBIN 7.5 g/dl (12.5-16.0); MEAN CORPUSCULAR HEMOGLOBIN 28 pg (27.0-31.0)
[2017-11-30 07:03] LABS: CREATININE, serum 1.53 mg/dL (0.52-1.25); POTASSIUM 3.2 mmol/L (3.4-5.0)
[2017-11-30 09:17] LABS: HEMATOCRIT 26.1 % (37.0-47.0); HEMOGLOBIN 7.7 g/dl (12.5-16.0)
[2017-11-30 09:52] VITALS: BP 143/42; PULSE 57; TEMP 97.5
[2017-11-30 13:12] VITALS: BP 125/51; PULSE 55; TEMP 97.3
[2017-11-30 17:17] LABS: HEMATOCRIT 25.5 % (37.0-47.0); HEMOGLOBIN 7.6 g/dl (12.5-16.0)
[2017-11-30 17:37] VITALS: BP 141/49; PULSE 64; TEMP 97.3
[2017-11-30 21:13] VITALS: BP 129/54; PULSE 64; TEMP 97.4
[2017-12-01 02:08] LABS: HEMATOCRIT 24.7 % (37.0-47.0); HEMOGLOBIN 7.4 g/dl (12.5-16.0)
[2017-12-01 02:41] VITALS: BP 149/52; PULSE 71; TEMP 97.4
[2017-12-01 06:08] VITALS: BP 150/76; PULSE 67; TEMP 98.2
[2017-12-01 07:04] LABS: BASO % 0.1 % (0.0-2.0); EOS # 0.3 (0.0-0.7); EOS % 3.1 % (0-4.0); GRAN % 75.1 % (42.2-75.2); LYMPH # 0.7 (1.2-3.4); LYMPH % 8.7 % (20.0-51.0); MEAN CELL VOLUME 95 fl (80.0-100.0); MEAN CORPUSCULAR HGB CONC 30 g/dl (33.0-37.0); MEAN PLATELET VOLUME 9.2 fl (7.4-10.4); MONO % 12.5 % (1.7-9.3); PLATELET COUNT 112 K/mm3 (130-400); RED BLOOD COUNT 2.76 M/mm3 (4.10-5.30); REDCELL DISTRIBUTION WIDTH-CV 22.3 % (11.5-14.5)
[2017-12-01 07:05] LABS: HEMATOCRIT 26.2 % (37.0-47.0); HEMOGLOBIN 7.9 g/dl (12.5-16.0); MEAN CORPUSCULAR HEMOGLOBIN 29 pg (27.0-31.0)
[2017-12-01 07:17] LABS: CALCIUM 9.4 mg/dL (8.4-10.2); CREATININE, serum 1.43 mg/dL (0.52-1.25); POTASSIUM 4.2 mmol/L (3.4-5.0)
[2017-12-01] MEDS ORDERED: TYLENOL 325MG325 MG PO (09:10)
[2017-12-01] MEDS ORDERED: NORCO 325 MG-51 TAB PO (09:11)
[2017-12-01 09:18] LABS: HEMATOCRIT 25.3 % (37.0-47.0); HEMOGLOBIN 7.6 g/dl (12.5-16.0)
[2017-12-01 10:00] VITALS: BP 130/39; PULSE 63; TEMP 97.2
[2017-12-01] MEDS ORDERED: PROTONIX 40MG T40 MG PO (10:21)
[2017-12-01] MEDS ORDERED: LIDODERM 5% PATC1 EA TP (10:21)
[2017-12-01 10:57] VITALS: BP 130/39; PULSE 63; TEMP 97.2
[2017-12-01 13:33] VITALS: BP 137/46; PULSE 71; TEMP 98.1
[2017-12-02 19:48] LABS: HELICOBACTER PYLORI STOOL AG Negative (Negative)
== END 2017-12-01 14:00 | DRG 378 ==
LOC: SURG 16:08
PROVIDERS: Internal Medicine Gastroenterology; Nurse Practitioner Family; Physician Assistant
PROC: 0DJD8ZZ Inspection of Lower Intestinal Tract, Via Natural or Artificial Opening Endoscopic (ICD-10-PCS; 2017-11-29)
PROC: 0W3P8ZZ Control Bleeding in Gastrointestinal Tract, Via Natural or Artificial Opening Endoscopic (ICD-10-PCS; principal; 2017-11-29 12:00)
PROC: 3E0G8GC Introduction of Other Therapeutic Substance into Upper GI, Via Natural or Artificial Opening Endoscopic (ICD-10-PCS; 2017-11-29 12:00)
DX: K25.4 Chronic or unspecified gastric ulcer with hemorrhage (principal); D62 Acute posthemorrhagic anemia; N17.9 Acute kidney failure, unspecified; I13.0 Hypertensive heart and chronic kidney disease with heart failure and stage 1 through stage 4 chronic kidney disease, or unspecified chronic kidney disease; I50.32 Chronic diastolic (congestive) heart failure; N39.0 Urinary tract infection, site not specified; Z66 Do not resuscitate; N18.3 Chronic kidney disease, stage 3 (moderate); M06.9 Rheumatoid arthritis, unspecified; I48.91 Unspecified atrial fibrillation; Z79.01 Long term (current) use of anticoagulants; B96.5 Pseudomonas (aeruginosa) (mallei) (pseudomallei) as the cause of diseases classified elsewhere; I34.0 Nonrheumatic mitral (valve) insufficiency; I89.0 Lymphedema, not elsewhere classified; D50.0 Iron deficiency anemia secondary to blood loss (chronic); E87.6 Hypokalemia
CPT/HCPCS: 99223-AI; 99232-AI; 99233-AI; 99239; C9113; J0171; J0692; J2250; J2405; J7030; P9016

== ENCOUNTER → 2017-12-05 | Outpatient (REF) ==
[~2017-12-05] MED LIST changes: +ADVIL200 MG PO; +BENADRYL25 M2 PO; +FERROUS SU325 MG/TAB PO; +K-DUR20 MEQ PO; +LIDODERM 5% PATC1 EA TP; +LIPITOR 40MG TA40 MG PO; +NORCO 325 MG-51 TAB PO; +PROTONIX 40MG T40 MG PO; +TUMS500 MG PO; +TYLENOL 325MG325 MG PO
[2017-12-05 13:21] LABS: COLLECTION METHOD CATHETER
[2017-12-05 15:04] LABS: PH 6 (5-8); URINE APPEARANCE Clear; URINE BILIRUBIN Negative (NEGATIVE); URINE BLOOD Negative (NEGATIVE); URINE COLOR Straw; URINE GLUCOSE Negative (NEGATIVE); URINE KETONE Negative (NEGATIVE); URINE LEUKOCYTE ESTERASE 1+ (NEGATIVE); URINE NITRATE Negative (NEGATIVE); URINE PROTEIN(semi-quant) Negative (NEGATIVE); URINE UROBILINOGEN Negative (NEGATIVE)
[2017-12-05 15:07] LABS: SQUAMOUS EPITHELIAL 0-2 /hpf; URINE BACTERIA Rare /hpf; URINE RBC None Seen /hpf
== END ==
LOC: ZCOL.LAB 13:20
PROVIDERS: Nurse Practitioner Family
DX: R41.82 Altered mental status, unspecified (principal)

== ENCOUNTER → 2017-12-05 | Outpatient (REF) ==
[2017-12-05 11:56] LABS: BASO % 0.7 % (0.0-2.0); EOS # 0.2 (0.0-0.7); EOS % 4.8 % (0-4.0); GRAN % 67.3 % (42.2-75.2); LYMPH # 0.6 (1.2-3.4); LYMPH % 12.7 % (20.0-51.0); MEAN CELL VOLUME 97 fl (80.0-100.0); MEAN CORPUSCULAR HGB CONC 30 g/dl (33.0-37.0); MEAN PLATELET VOLUME 9.6 fl (7.4-10.4); MONO # 0.6 (0.1-0.6); MONO % 13.8 % (1.7-9.3); PLATELET COUNT 94 K/mm3 (130-400); RED BLOOD COUNT 2.63 M/mm3 (4.10-5.30); REDCELL DISTRIBUTION WIDTH-CV 20.7 % (11.5-14.5)
[2017-12-05 11:57] LABS: HEMATOCRIT 25.4 % (37.0-47.0); HEMOGLOBIN 7.6 g/dl (12.5-16.0); MEAN CORPUSCULAR HEMOGLOBIN 29 pg (27.0-31.0)
[2017-12-05 12:19] LABS: CALCIUM 8.6 mg/dL (8.4-10.2); CREATININE, serum 1.37 mg/dL (0.52-1.25)
== END ==
LOC: ZCOL.LAB 11:42
PROVIDERS: Internal Medicine
DX: N17.9 Acute kidney failure, unspecified (principal); K92.2 Gastrointestinal hemorrhage, unspecified

== ENCOUNTER → 2017-12-13 | Outpatient (REF) ==
[2017-12-13 17:08] LABS: COLLECTION METHOD CLEAN CATCH
[2017-12-13 17:20] LABS: MUCOUS Present /lpf; PH 5 (5-8); SQUAMOUS EPITHELIAL 0-2 /hpf; URINE APPEARANCE Clear; URINE BACTERIA None Seen /hpf; URINE BILIRUBIN Negative (NEGATIVE); URINE BLOOD Negative (NEGATIVE); URINE COLOR Straw; URINE GLUCOSE Negative (NEGATIVE); URINE KETONE Negative (NEGATIVE); URINE LEUKOCYTE ESTERASE 2+ (NEGATIVE); URINE NITRATE Negative (NEGATIVE); URINE PROTEIN(semi-quant) Negative (NEGATIVE); URINE UROBILINOGEN Negative (NEGATIVE); URINE WBC 20-50 /hpf
== END ==
LOC: ZCOL.LAB 17:06
PROVIDERS: Internal Medicine
DX: N39.0 Urinary tract infection, site not specified (principal)

== ENCOUNTER → 2018-01-13 | Outpatient (REF) ==
[~2018-01-13] MED LIST changes: +ALDACTONE50 MG PO; +FLEXERIL 1010 MG/TAB PO; +NATURAL IRON65 MG; +NORVASC 5MG5 MG/TAB PO
[2018-01-13 13:56] LABS: BASO # 0.1 (0.0-0.2); BASO % 1.7 % (0.0-2.0); EOS # 0.2 (0.0-0.7); EOS % 5.6 % (0-4.0); GRAN # 1.7 (1.4-6.5); GRAN % 56.3 % (42.2-75.2); LYMPH # 0.6 (1.2-3.4); LYMPH % 19.5 % (20.0-51.0); MEAN CELL VOLUME 90 fl (80.0-100.0); MEAN CORPUSCULAR HGB CONC 31 g/dl (33.0-37.0); MEAN PLATELET VOLUME 9.8 fl (7.4-10.4); MONO # 0.5 (0.1-0.6); MONO % 16.2 % (1.7-9.3); PLATELET COUNT 200 K/mm3 (130-400); RED BLOOD COUNT 3.43 M/mm3 (4.10-5.30); REDCELL DISTRIBUTION WIDTH-CV 17.4 % (11.5-14.5)
[2018-01-13 13:57] LABS: HEMATOCRIT 30.8 % (37.0-47.0); HEMOGLOBIN 9.4 g/dl (12.5-16.0); MEAN CORPUSCULAR HEMOGLOBIN 27 pg (27.0-31.0)
== END ==
LOC: ZLAB.STJ 13:51
PROVIDERS: Family Medicine
DX: I50.33 Acute on chronic diastolic (congestive) heart failure (principal)

== ENCOUNTER 2018-10-16 08:37 | Outpatient (RCR) | payer MEDICARE ==
[~2018-10-16] VITALS: Ht 154.9 cm; Wt 84.6 kg
[2018-10-16] MEDS ORDERED: NORCO 325 MG-51 TAB PO (09:34)
[2018-10-16 09:37] VITALS: BP 152/42; PULSE 55; TEMP 97.1
[2018-10-18] MEDS ORDERED: INVANZ INJ1 G/VIAL IV (09:12)
== END 2018-10-16 18:23 | disposition home or self-care (01) ==
LOC: EUO 08:37
DX: N39.0 Urinary tract infection, site not specified (principal); B99.9 Unspecified infectious disease
CPT/HCPCS: J1335

== ENCOUNTER 2018-10-19 09:00 | Outpatient (RCR) | payer MEDICARE ==
[2018-10-17 09:12] VITALS: BP 156/79; PULSE 54; TEMP 97.6
[2018-10-18 09:07] VITALS: BP 153/69; PULSE 51; TEMP 97.6
[~2018-10-19] VITALS: Ht 154.9 cm; Wt 84.6 kg
[~2018-10-19 09:00] MED LIST changes: +INVANZ INJ1 G/VIAL IV
--- NOTE | 2018-10-19 10:03 | NUR ---
Order received to cancel iv antibitics.
--- NOTE | 2018-10-20 16:52 | NUR ---
Per pt report her home health nurse at [facility] took INT out yesterday
== END 2018-10-19 18:06 | disposition home or self-care (01) ==
LOC: EUO 09:00
DX: N39.0 Urinary tract infection, site not specified (principal)
CPT/HCPCS: J1335